=== PATIENT | female | born 1940 | race African-American/Black ===

== ENCOUNTER 2018-11-01 11:36 | Emergency (ER) | payer OTHER ==
[~2018-11-01] VITALS: Ht 175.3 cm; Wt 90.7 kg
[~2018-11-01 11:36] MED LIST: KLO.5; NOR10; OMEP10CA2
[2018-11-01 12:00] VITALS: BP_SYST 158
--- NOTE | 2018-11-01 13:11 | NUR ---
Patient to ER bed 7 to gown for evaluation. Side rails up. Report given to Silke MONTGOMERY.
--- NOTE | 2018-11-01 13:30 | NUR ---
ER Dr. Collado at bedside examining patient.
--- NOTE | 2018-11-01 13:55 | NUR ---
Patient given written and verbal discharge instructions and verbalizes understanding. ER MD discussed with patient the results and treatment provided. Patient in stable condition. ID arm band removed. Rx of Tyelnol #3 given. discussed with patient the addictive nature of opioids and that driving or using alcohol in conjunction with Tylenol #3 may result in harm or . Patient educated on pain management and to follow up with PMD. Pain Scale 4/10. Opportunity for questions provided and answered. Medication side effect fact sheet provided.
--- NOTE | 2018-11-01 18:55 | NUR ---
Note undone in EDM - 11/01/18 at 1858 by [email or web address] Patient given written and verbal discharge instructions and verbalizes understanding. ER discussed with patient the results and treatment provided. Patient in stable condition. ID arm band removed. Rx of Tyelnol #3 given. discussed with patient the addictive nature of opioids and that driving or using alcohol in conjunction with Tylenol #3 may result in harm or . Patient educated on pain management and to follow up with PMD. Pain Scale 4/10. Opportunity for questions provided and answered. Medication side effect fact sheet provided.
== END 2018-11-01 13:55 | disposition home or self-care (01) ==
LOC: SED 11:36
DX: S92.411A Displaced fracture of proximal phalanx of right great toe, initial encounter for closed fracture (principal); I10 Essential (primary) hypertension; Z91.041 Radiographic dye allergy status; Z79.899 Other long term (current) drug therapy; W22.8XXA Striking against or struck by other objects, initial encounter; Y93.89 Activity, other specified; Y92.89 Other specified places as the place of occurrence of the external cause; Y99.8 Other external cause status
CPT/HCPCS: 99283